=== PATIENT | female | born 1965 | race Asian ===

== ENCOUNTER 2018-01-16 06:57 | Day surgery (SDC) | payer OTHER ==
[2018-01-16] MEDS ORDERED: LIDOCAINE 4% SOLUTION 50 ML BTL (08:13)
[2018-01-16] MEDS ORDERED: MIDAZOLAM 1 MG/ML 2 ML INJ ×2 (08:53)
[2018-01-16] MEDS ORDERED: FENTAnyl 50 MCG/ML VIAL (08:53)
== END 2018-01-16 13:22 | disposition home or self-care (01) ==
LOC: GIL 06:57
DX: K29.30 Chronic superficial gastritis without bleeding (principal); K64.8 Other hemorrhoids; K64.4 Residual hemorrhoidal skin tags; Z85.3 Personal history of malignant neoplasm of breast
CPT/HCPCS: 43239; 88305; 88312